=== PATIENT | male | born 1975 | race African-American/Black ===

== ENCOUNTER 2023-03-27 06:40 | Emergency (ER) | payer SELFPAY ==
[2023-03-27 06:41] VITALS: BP 112/63; PULSE 58; RESP 15; TEMP 36.4; O2SAT 95; BMI 26.4
--- NOTE | 2023-03-27 07:23 | EX.ED.VIS.EY ---
HPI History of Present Illness Chief Complaint: Eye Problem Narrative Narrative: 47-year-old male present with bilateral eye pain. He denies any trauma. He denies foreign body sensation. He does not wear contacts or glasses. His last eye exam was about 3 years ago. Patient states he recently moved here about 3 weeks ago. He does not have any physicians around here. He states he was at work when his eyes started to hurt. He states he does not work with any UV light or has not exposure to any welding. Denies pain in the temples. Denies headache. Describes his eye pains as aching. Denies a headache or nausea. [facility] Medical History Hemorrhage following tonsillectomy and adenoidectomy Medical History no medical history Home Medications ibuprofen 600 mg tablet 600 mg PO Q8H PRN PRN pain #20 TABLETS 03/27/23 [Rx Last Taken Unknown] ketorolac 0.5 % eye drops 2 drp EACH EYE Q8H PRN pain #10 mL 03/27/23 [Rx Last Taken Unknown] Allergy/AdvReac Type Severity Reaction Status Date / Time No Known Allergies Allergy Verified 03/27/23 06:51 Social History Smoking Status: Current every day smoker tobacco type: cigarettes ROS ROS ED Constitutional Constitutional ED: Denies chills, fever(s) or sweats Eyes Eyes: Reports other Details: Lateral eye pain/injection ; Denies blurry vision or change in vision ENT ENT ED: Denies ear pain or sore throat Cardiovascular Cardiovascular: Denies chest pain, palpitations or racing heartbeat Respiratory/Chest Respiratory/Chest: Denies cough, dyspnea or sputum Gastrointestinal Gastrointestinal: Denies abdominal pain, constipation, diarrhea, nausea or vomiting Genitourinary Genitourinary ED: Denies dysuria, hematuria or urinary frequency Musculoskeletal Musculoskeletal: Denies arthralgias, myalgias or neck pain Integumentary Denies abscess, Abrasions or rash Neurologic Neurologic: Denies headache(s), paresthesias or weakness Psychiatric Psychiatric: Denies anxiety, depression, suicidal ideation or suicidal thoughts Endocrine Endocrinology: Denies polydipsia or polyuria EXAM Physical Exam Const Vital Signs: 03/27/23 06:41 Temperature 97.6 F L Temperature Source Oral Pulse Rate 58 L Respiratory Rate 15 Blood Pressure 112/63 Blood Pressure Mean 79 Pulse Ox 95 Oxygen Delivery Method Room Air Positive well nourished General Appearance ED: NAD HEENT atraumatic and trauma Eyes PERRL, EOMs intact bilaterally, conjunctivae normal and no scleral icterus Visual Field: No peripheral vision loss and No central vision loss Alignment: alignment normal Periorbital: periorbital findings normal Eyelid: eyelids normal Conjunctiva: conjunctiva normal Sclera: sclera abnormal Positive for bilateral Details: scleral injection (Mild) Pupil: PERRL Neck no lymphadenopathy Resp normal respiratory effort and no retractions Cardio regular rate and regular rhythm Neuro oriented x3, CN's II-XII intact bilaterally and moves all extremities Sensorium / Orientation: alert MDM MDM MDM Narrative Medical decision making narrative: With bilateral eye pain. Did use tetracaine to anesthetize eyes. I was able to examine them they look injected. I do not see any other lesions that I can tell. The exam is somewhat limited as he can only tolerate the bluelight in his eye. I cannot Keep his eye open to examine it further even with the Castro-Pen or the slit lamp. I made several attempts and at this point I did speak with Dr. Ray who is on-call for [facility] and recommended the patient come over for an evaluation. Patient was amenable to this. He was directed to go directly to the [facility]. Impression: 1. Bilateral eye pain 2. Decreased visual acuity left eye Discharge Plan Triage Chief Complaint: Eye Problem ED Provider: Baldemar Elizabeth Dx/Rx/DC Orders Instructions: ED Conjunctivitis, Nonspecific Prescriptions: New ketorolac 0.5 % drops 2 drp EACH EYE Q8H PRN (Reason: pain) Qty: 10 0RF Rx Instructions: begin 24 hours prior to surgery ibuprofen 600 mg tablet 600 mg PO Q8H PRN PRN (Reason: pain) Qty: 20 0RF Stand Alone Forms: ED Work / School Excuse Primary Care Provider: Care Physician,No Primary Referrals: Wu Mcfadden MD [Med Staff - Active Staff] - As soon as possible Narciso Ray MD [Med Staff - Active Staff] - As soon as possible Activity Restrictions/Additional Instructions: Please go directly to [facility]. Dr. Ray is expecting you. Disposition Disposition: Home, Self Care
[2023-03-27] MEDS: Tetracaine 0.5% Ophthalmic Bottle 1 DRP OPHTHALMIC (07:38)
[2023-03-27] MEDS: Fluorescein 1 MG STRIP 1 STRIP EACH EYE (08:05)
== END 2023-03-27 08:50 | disposition home or self-care (01) ==
PROVIDERS: Emergency Provider Student in an Organized Health Care Education/Training Program; Visit Provider Student in an Organized Health Care Education/Training Program
DX: H57.13 Ocular pain, bilateral (principal); F17.210 Nicotine dependence, cigarettes, uncomplicated; H53.9 Unspecified visual disturbance
CPT/HCPCS: 99283

== ENCOUNTER 2023-04-06 03:34 | Emergency (ER) | payer SELFPAY ==
[2023-04-06 03:34] VITALS: BP 110/67; PULSE 80; RESP 16; TEMP 36.6; O2SAT 99
[2023-04-06 03:41] VITALS: BP 110/67; PULSE 71; RESP 16; TEMP 36.6; O2SAT 100
--- NOTE | 2023-04-06 03:59 | EDS_ITS ---
HPI History of Present Illness Chief Complaint: General Illness Informant: patient Narrative Narrative: Patient states for the past week he has had malaise, myalgias including aching in the back of his neck and had, without any neurologic symptoms, vomiting, photophobia, vision changes, or true headache. Tonight he started getting tingling in his tongue and he had hot flash at work, maybe it was a fever maybe it was not, he did not check his temperature and has not taken anything. Denies cough, congestion, earache, sore throat. No other tingling. He states also for the past 3 days he has had burning when he urinates, he had unprotected intercourse and is concerned maybe he contracted an STD and wants tested for every STD that we can test for. Denies any penile pain or discharge when he is not urinating, denies testicular pain, abdominal pain, and denies any rashes in his genitalia. [facility] Medical History Hemorrhage following tonsillectomy and adenoidectomy Home Medications NK 04/06/23 [History Last Taken Unknown] doxycycline monohydrate 100 mg capsule 100 mg PO BID #14 CAPSULES 04/06/23 [Rx Last Taken Unknown] Allergy/AdvReac Type Severity Reaction Status Date / Time No Known Allergies Allergy Verified 04/06/23 03:42 Social History Smoking Status: Current every day smoker tobacco type: cigarettes ROS ROS ED Constitutional Constitutional ED: Reports body ache(s), fever(s), malaise and subjective Eyes Eyes: Denies blurry vision, change in vision or diplopia ENT ENT ED: Denies ear pain, rhinorrhea or sore throat Cardiovascular Cardiovascular: Denies chest pain or palpitations Respiratory/Chest Respiratory/Chest: Denies cough or dyspnea Gastrointestinal Gastrointestinal: Denies abdominal pain, diarrhea, nausea or vomiting Genitourinary Genitourinary ED: Reports dysuria; Denies hematuria or urinary frequency Musculoskeletal Musculoskeletal: Reports back pain and neck pain Integumentary Denies abscess or rash Neurologic Neurologic: Reports paresthesias; Denies weakness Psychiatric Psychiatric: Denies anxiety or suicidal thoughts EXAM Physical Exam Const Vital Signs: 04/06/23 03:34 04/06/23 03:39 04/06/23 03:41 Temperature 97.8 F 97.8 F Temperature Source Oral Oral Pulse Rate 80 71 Respiratory Rate 16 16 Respiratory Pattern Normal Blood Pressure 110/67 110/67 Blood Pressure Mean 81 81 Pulse Ox 99 100 Oxygen Delivery Method Room Air Room Air Positive well nourished and well developed General Appearance ED: well developed and NAD HEENT Reports moist mucous membranes HEENT Narrative: Tongue, posterior oropharynx, oral mucosa all normal. No discoloration. No signs of candidiasis. normocephalic and atraumatic Eyes PERRL and EOMs intact bilaterally Neck full ROM, no lymphadenopathy and supple Chest Wall inspection of chest normal and palpation of chest normal Resp normal respiratory effort and clear to auscultation bilaterally Cardio regular rate, regular rhythm and no murmurs Rate: Negative for tachycardic GI non-tender and non-distended Auscultation: normoactive bowel sounds Palpation: soft Back/Spine no CVA tenderness General Back: other FROM Extremity normal to inspection General Extremety ED: Negative for edema, pulses abnormal or tenderness General Extremity: Negative for edema or pulses abnormal Neuro oriented x3, CN's II-XII intact bilaterally and no sensory deficits noted Sensorium / Orientation: awake and alert Motor Exam: strength 5/5 throughout Skin no rashes or lesions noted and no wounds MDM MDM MDM Narrative Medical decision making narrative: Patient with symptoms of a viral syndrome but without cough, and dysuria after unprotected intercourse. Performed labs for contacts in addition to COVID, influenza, RSV swabs all of which were negative, and a urinalysis to evaluate for urine infection as well as GC/chlamydia which are the appropriate STDs that I can test for here, although they will not return during this shift. Will treat him empirically for both of those, with Rocephin to 50 mg IM and doxycycline for the next week. He was given Toradol while he was here which helped. All of the labs and urinalysis were normal, the GC and chlamydia are pending patient given appropriate discharge instructions and a work note at his request for today. Lab Data Attestation: I reviewed the patient's lab results. Labs: Laboratory Results - last 24 hr 04/06/23 04:20 WBC 7.5 RBC 3.81 L Hgb 12.0 L Hct 37.4 L MCV 98.2 H MCH 31.5 MCHC 32.1 RDW Std Deviation 50.3 H RDW Coeff of Gabriel 13.9 Plt Count 173 MPV 9.5 Immature Gran % (Auto) 0.300 Neut % (Auto) 34.7 L Lymph % (Auto) 54.9 H [place] % (Auto) 6.1 Eos % (Auto) 3.6 Baso % (Auto) 0.4 Absolute Neuts (auto) 2.6 Absolute Lymphs (auto) 4.12 Nucleated RBC % 0 Sodium 141 Potassium 3.8 Chloride 108 H Carbon Dioxide 30.0 Anion Gap 3 L BUN 10 Creatinine 0.93 Est GFR (MDRD) Af Amer 113 Est GFR (MDRD) Non-Af 93 BUN/Creatinine Ratio 10.8 Glucose 86 Calcium 8.5 Urine Color Yellow Urine Clarity Clear Urine pH 6.0 Ur Specific [place] 1.010 Urine Protein Negative Urine Glucose (UA) Normal Urine Ketones Negative Urine Occult Blood 10 H Urine Nitrite Negative Urine Bilirubin Negative Urine Urobilinogen Normal Ur Leukocyte Esterase Negative Urine RBC 0 SEEN Urine WBC 0 SEEN Ur Squamous Epith Cells 0 SEEN Urine Bacteria 0 SEEN Urine Mucus 0 SEEN Discharge Plan Triage Chief Complaint: General Illness ED Provider: Adrián Hernandez Dx/Rx/DC Orders Clinical Impression: Acute viral syndrome, Urethritis, unspecified Instructions: ED STI Male Treated Prescriptions: New doxycycline monohydrate 100 mg capsule 100 mg PO BID Qty: 14 0RF No Action NK Stand Alone Forms: ED Work / School Excuse Primary Care Provider: Care Physician,No Primary Referrals: Daniela Amaral [Non-Staff] - 1 Week if not improving Disposition Disposition: Home, Self Care
[2023-04-06 04:33] LABS: Bacteria 0 SEEN /hpf (None Seen); Mucous, Urine 0 SEEN /hpf (<or=2+); Red Blood Cells-Urine 0 SEEN /hpf (0-5); Squamous Epithelial Cells - UA 0 SEEN /hpf (0-5); White Blood Cells 0 SEEN /hpf (0-5)
[2023-04-06 04:34] LABS: Absolute Lymphocyte Count 4.12 X10^3/uL (0.83-4.51); Absolute Neutrophil Count 2.6 X10^3/uL (2.0-7.7); Basophil# 0.03 X10^3/uL; Basophil% 0.4 % (0-1); Eosinophil# 0.27 X10^3/uL; Eosinophils% 3.6 % (0-5); Hematocrit 37.4 % (40-54); Lymphocyte # 4.12 X10^3/ul (0.83-4.51); Lymphocyte % 54.9 % (19-41); Mean Corp Hgb Conc 32.1 g/dL (32-36); Mean Corpuscular Hgb 31.5 pg (27.0-32.0); Mean Corpuscular Volume 98.2 fL (80-94); Mean Platelet Vol. 9.5 fl (6.2-12.0); Monocyte# 0.46 X10^3/uL; Monocyte% 6.1 % (0-10); NRBC Flagged by Analyzer 0 % (0-5); Neutrophil % 34.7 % (47-70); Platelet Count 173 K/mm3 (150-450); RBC Distribution Width CV 13.9 % (11.6-14.6); RBC Distribution Width SD 50.3 fl (35.1-43.9); Red Blood Count 3.81 M/mm3 (4.6-6.2); White Blood Count 7.5 K/mm3 (4.4-11.0)
[2023-04-06] MEDS: Ketorolac 60 MG/2 ML Vial IM (04:34)
[2023-04-06 04:36] LABS: Color, Urine Yellow (Yellow); Glucose, Dipstick Normal (Normal); Ketone-Dipstick Negative (Negative); Leukocyte Esterase-Dipstick Negative /ul (Negative); Nitrite-Dipstick Negative (Negative); Occult Blood-Urine 10 /ul (Negative); Protein-Dipstick Negative (Negative); Urine Bilirubin Dipstick Negative (Negative); Urine Clarity Clear (Clear); Urine Urobilinogen Normal (Normal)
[2023-04-06 04:39] VITALS: BP 113/70; PULSE 70; RESP 16; TEMP 36.6; O2SAT 100
[2023-04-06 04:55] LABS: Anion Gap 3 (5-15); BUN 10 mg/dL (7-18); BUN/Creat Ratio 10.8 RATIO (10-20); Calcium,Total 8.5 mg/dL (8.5-10.1); Chloride 108 mmol/L (98-107); Creatinine, Serum 0.93 mg/dL (0.70-1.30); EST Glomerular Filtration Rate 93 mL/min (>60); Est Glom Filt Rate - Afr Amer 113 mL/min (>60); Glucose 86 mg/dL (74-106); Potassium 3.8 mmol/L (3.5-5.1); Sodium Level 141 mmol/L (136-145)
[2023-04-06 05:39] VITALS: BP 110/77; PULSE 74; RESP 16; TEMP 36.6; O2SAT 100
[2023-04-06] MEDS: Ceftriaxone 500 MG Vial 250 MG IM (05:46)
[2023-04-06] MEDS: Doxycycline 100 MG CAPSULE PO (05:47)
[2023-04-06 05:56] VITALS: BP 115/70; PULSE 70; RESP 16; TEMP 36.6
== END 2023-04-06 06:40 | disposition home or self-care (01) ==
PROVIDERS: Emergency Provider Emergency Medicine; Visit Provider Emergency Medicine
DX: B34.9 Viral infection, unspecified (principal); N34.2 Other urethritis; F17.210 Nicotine dependence, cigarettes, uncomplicated; M79.10 Myalgia, unspecified site; R20.2 Paresthesia of skin; M54.9 Dorsalgia, unspecified; M54.2 Cervicalgia; R30.0 Dysuria
CPT/HCPCS: 80048; 81001; 85025; 87428; 87491; 87591; 87807; 96372; 99283; A4216